=== PATIENT | male | born 1965 | race Caucasian/White ===

== ENCOUNTER 2022-12-16 07:46 | Emergency (ER) | payer BC, OTHER ==
[2022-12-16 07:58] VITALS: O2SAT 98
--- NOTE | 2022-12-16 07:59 | ERPHSYRPT ---
- History of Present Illness Time Seen by Provider: 12/16/22 07:59 Source: patient Exam Limitations: no limitations Patient Subjective Stated Complaint: PT states "I was chasing my grandkids around last night and fell and my hand pressed up into my right lower ribs and it hurts." Triage Nursing Assessment: Pt presnted alert and oriented X 3, skin pwd.; Pt ambulates with an upright steady gait, able to speak in clear full sentences. PT has tenderness and pain noted to right lower anterior ribs. Physician History: This is a 57-year-old white male who presents with right anterior lateral rib pain. Patient fell onto his right clenched fist yesterday evening when he was running around playing with his grandchildren. Patient's localized pain was worse this morning. He is concerned about fractured ribs. Occurred: yesterday Reason for Fall: lost balance, fell from standing pos Injuries/Pain Location: upper (Right upper anterior lateral ribs) Loss of Consciousness: no loss of consciousness Quality: sharpness, stabbing Severity of Pain-Max: moderate Severity of Pain-Current: moderate Modifying Factors: Improves With: movement Associated Symptoms (Fall): denies symptoms Allergies/Adverse Reactions: No Known Drug Allergies Allergy (Verified 12/16/22 07:58) Hx Tetanus, Diphtheria Vaccination/Date Given: No Hx Influenza Vaccination/Date Given: No Hx Pneumococcal Vaccination/Date Given: No Immunizations Up to Date: No Travel Risk - International Travel Have you traveled outside of the country in past 3 weeks: No - Coronavirus Screening Are you exhibiting any of the following symptoms?: No Symptoms: Shortness of Breath - Vaccine Status Have you recieved a Covid-19 vaccination: No - Review of Systems Constitutional: No Symptoms Eyes: No Symptoms Ears, Nose, & Throat: No Symptoms Respiratory: No Symptoms Cardiac: No Symptoms Abdominal/Gastrointestinal: No Symptoms Genitourinary Symptoms: No Symptoms Musculoskeletal: Fall, Injury (Right anterior lateral ribs) Skin: No Symptoms Neurological: No Symptoms Psychological: No Symptoms Endocrine: No Symptoms Hematologic/Lymphatic: No Symptoms Immunological/Allergic: No Symptoms All Other Systems: Reviewed and Negative - Past Medical History Pertinent Past Medical History: No - Past Surgical History Past Surgical History: No - Social History Smoking Status: Never smoker Exposure to second hand smoke: No Drug Use: marijuana Patient Lives Alone: No - Nursing Vital Signs Nursing Vital Signs: Initial Vital Signs Temperature 97.4 F 12/16/22 07:52 Pulse Rate 76 12/16/22 07:52 Respiratory Rate 18 12/16/22 07:52 Blood Pressure 188/90 12/16/22 07:52 O2 Sat by Pulse Oximetry 98 12/16/22 07:52 Pain Scale Pain Intensity 8 - Stefanie Coma Score Best Eye Response (Stefanie): (4) open spontaneously Best Verbal Response (Stefanie): (5) oriented Best Motor Response (Stefanie): (6) obeys commands Stefanie Total: 15 - Physical Exam General Appearance: no apparent distress, alert, anxiety Head Injury: no evidence of injury Eye Exam: PERRL/EOMI, eyes nml inspection ENT Exam: airway nml, nml ext.inspection Neck Exam: supple, trachea midline, full range of motion, normal alignment Respiratory/Chest Exam: normal breath sounds, rib tenderness (Right anterior lateral rib pain to palpation), No respiratory distress, No ecchymosis, No crepitus, No decreased breath sounds, No rhonchi, No wheezing, No accessory muscle use, No subcutaneous emphysema Cardiovascular Exam: normal heart sounds, regular rate/rhythm Gastrointestinal Exam: soft, normal bowel sounds, No tenderness Rectal Exam: not done Back Exam: normal inspection, normal range of motion, No CVA tenderness, No vertebral tenderness Extremity Exam: normal inspection, normal range of motion, capillary refill <3 sec, pelvis stable Neurologic Exam: alert, oriented x 3, cooperative, first crusher II-XII nml as tested, normal mood/affect, nml cerebellar function, nml station & gait, sensation nml Skin Exam: normal color, warm, dry SpO2 Interpretation: normal SpO2: 98 O2 Delivery: Room Air - Course Nursing assessment & vital signs reviewed: Yes Ordered Tests: Active Orders 24 hr Category Date Time Status RIBS UNILATERAL Stat Exams 12/16/22 08:01 Completed - Progress Progress: pain not gone completely, re-examined Progress Note: 12/16/22 08:18 Chest x-ray was interpreted by the radiologist and I reviewed the radiology report. I discussed the findings with the patient. This patient has a medical issue of low complexity. The work-up of right rib x- rays was ordered based on the patient's history present illness and physical findings. Patient has no known drug allergies and he takes no medications chronically. He did not require an extensive work-up. The results were discussed with the patient. The discharge plan was also discussed with the patient. We will provide him with a prescription for Percocet, Flexeril and naproxen. He is to use ice pack to the tender area 3 times a day for the next 48 hours. If he has persistent pain he should follow-up with his primary care provider. 12/16/22 08:49 Chest x-ray shows no acute rib fractures. There is no acute abnormalities. Counseled pt/family regarding: diagnosis, need for follow-up, rad results Medical Desision Making - Discussion of managment Agreed on:: Treatment plan, need for follow-up - Diagnostic Testing Diagnostic test were ordered, analyzed, and reviewed by me: Yes Radiological Interpretation: Reviewed by me, Teleradiologist Report - Risk of complications Low Risk: Low risk of morbidity from additional dx testing or treatment The pt has a mod risk of morbidity or mortality based on: Need for prescription drug management - Departure Departure Disposition: Home Clinical Impression: Rib contusion Condition: Stable Critical Care Time: No Referrals: MARK GÓMEZ [NON-STAFF PHY W/O PRIVILEGES] - Follow up/PCP as directed Additional Instructions: Ice pack to area 3 times a day for next 48 hours. Follow-up with your primary care provider for persistent pain symptoms. Take your medication as prescribed. Prescriptions: Oxycodone HCl/Acetaminophen [Percocet 5-325 mg Tablet] 1 each PO Q8H PRN PRN #6 tablet MDD 3 PRN Reason: Moderate To Severe Pain Cyclobenzaprine HCl 10 mg [Cyclobenzaprine 10 MG] 10 mg PO TID #10 tablet Naproxen 500 mg [Naprosyn 500 MG] 500 mg PO BID #10 tablet
--- NOTE | 2022-12-16 08:47 | XRAY ---
Indication: Pain following fall. Comparison: None 2 view right ribs demonstrates osteopenia, minimal degenerative changes throughout spine, and tiny hilar/splenic calcified granulomas. No other bony, articular, or soft tissue abnormalities.
[2022-12-16 08:53] VITALS: BP 192/94; PULSE 78
== END 2022-12-16 09:02 | disposition home or self-care (01) ==
LOC: ED 07:46
DX: S20.211A Contusion of right front wall of thorax, initial encounter (principal); W01.0XXA Fall on same level from slipping, tripping and stumbling without subsequent striking against object, initial encounter; Y93.02 Activity, running; R07.81 Pleurodynia; Z28.310 Unvaccinated for COVID-19; Z79.891 Long term (current) use of opiate analgesic
CPT/HCPCS: 71100; 99282